=== PATIENT | male | born 1970 ===

== ENCOUNTER 2020-05-27 05:21 | Day surgery (SDC) | payer OTHER ==
[2020-05-27] MEDS ORDERED: COLACE100 MG PO (09:55)
[2020-05-27] MEDS ORDERED: NEURONTIN600 M1 PO (09:55)
[2020-05-27] MEDS ORDERED: PERCOCET 5-3251 EACH PO (09:55)
== END 2020-05-27 13:55 | disposition home or self-care (01) ==
LOC: CIR.AMB 05:21
PROVIDERS: ATTEND Surgery
DX: K40.91 Unilateral inguinal hernia, without obstruction or gangrene, recurrent (principal); Z20.822 Contact with and (suspected) exposure to COVID-19